=== PATIENT | male | born 1955 | race Caucasian/White ===

== ENCOUNTER → 2016-08-29 | Outpatient (CLI) | payer BC ==
[~2016-08-29] MED LIST: CARVEDILOL25 MG PO; CITALOPRAM HYDR40 MG PO; DIVALPROEX SOD500 M2 PO; HYDROCHLOROTH12.5 M1 PO; LISINOPRIL10 MG PO; MELOXICAM15 MG PO; METFORMIN HCL1000 MG PO; OMEPRAZOLE20 MG PO; TRAZODONE HCL50 MG PO; TYLENOL PM1 CAP PO; VICODIN 7.5/501 EACH PO
[2016-08-29 07:33] LABS: HEMOGLOBIN 14.7 g/dL (14.1-18.0); LYMPH # 1.8 K/mm3 (0.7-4.5)
[2016-08-29 10:00] LABS: BUN 19 mg/dL (7-18)
[2016-08-29 10:03] LABS: GFR (ESTIMATED) 69 ML/MIN (>60)
[2016-08-30 08:55] LABS: Folate (Folic Acid) 19.8 ng/mL (>3.0)
[2016-08-30 09:41] LABS: Vitamin B12 987 pg/mL (211-946)
[2016-08-30 18:36] LABS: Antinuclear Antibodies, IFA Negative (.)
== END ==
LOC: LAB 07:07
PROVIDERS: Internal Medicine
DX: I25.10 Atherosclerotic heart disease of native coronary artery without angina pectoris (principal); I11.9 Hypertensive heart disease without heart failure; E78.5 Hyperlipidemia, unspecified; G62.9 Polyneuropathy, unspecified; Z95.5 Presence of coronary angioplasty implant and graft